=== PATIENT | female | born 1950 | race Caucasian/White ===

== ENCOUNTER → 2017-05-30 | Outpatient (CLI) | payer OTHER ==
[~2017-05-30] MED LIST: ADVAIR 250-501 EACH IH; ALBUTEROL INHAL17 GM IH; ALBUTEROL2.5 MG/31; ALBUTEROL2.5 MG/32 INH; ASPIRIN; ASPIRIN325 PO; BENTYL 20 MG TA20 M1 PO; CALCIUM; CELEXA40 MG PO; CLONAZEPAM; CLONAZEPAM 0.50.5 M1 PO; COMBIVENT INH; CYCLOBENZAPRINE10 MG PO; DEXILANT60 MG PO; ENABLEX15 MG PO; FLEXERIL PO; GABAPENTIN100 MG PO; LORTABELXR PO; MIDRIN CAPSULE1 CAP PO; NAPROXEN250 MG PO; NORCO 5-325 TA1 EACH PO; PREDNISONE50 MG PO; PRILOSEC 20 MG20 MG PO; PROAIR HFA8.5 GM INH; VERAPAMIL HCL120 M1 PO; VERAPAMIL HCL120 MG PO; VICODIN 5-5001 EACH PO; VITAMIN D1000 UNI1 PO; VITAMIN E400 UNIT PO; VITAMINC500 PO; ZPAK PO
== END ==
LOC: M.RAD 05-22 13:30
DX: Z12.31 Encounter for screening mammogram for malignant neoplasm of breast (principal); Z13.820 Encounter for screening for osteoporosis; Z78.0 Asymptomatic menopausal state

== ENCOUNTER 2017-09-11 13:28 | Emergency (ER) | payer OTHER ==
[~2017-09-11] VITALS: Ht 160 cm; Wt 51.7 kg
[~2017-09-11 13:28] MED LIST changes: -NAPROXEN250 MG PO
[2017-09-11 14:19] LABS: ABSOLUTE BASOPHILS 0.1 thou/uL (0.0-0.2); ABSOLUTE EOSINOPHILS 0.2 thou/uL (0.0-0.7); ABSOLUTE LYMPHOCYTES 2.4 thou/uL (0.8-5.3); ABSOLUTE MONOCYTES 0.4 thou/uL (0.0-1.2); ABSOLUTE NEUTROPHILS 5.5 thou/uL (1.6-8.1); BASOPHILS 1.3 %; EOSINOPHILS 2.8 %; HEMATOCRIT 40.3 % (37.0-47.0); HEMOGLOBIN 13.8 gm/dL (12.0-15.0); LYMPHOCYTES 27.6 %; MCH 32.4 pg (26.0-34.0); MCHC 34.3 g/dL (28.0-37.0); MCV 94.5 fL (80.0-100.0); MONOCYTES 4.6 %; MPV 7.3 fl. (7.2-11.1); NUCLEATED RBCS 0 /100WBC; PLATELET COUNT* 270 thou/uL (150-400); POLYS 63.7 %; RBC 4.27 mil/uL (4.20-5.00); RDW-CV 13.5 % (10.5-14.5); WBC 8.6 thou/uL (4.0-11.0)
[2017-09-11 14:28] LABS: CALCIUM 8.7 mg/dL (8.5-10.1); CREATININE 1.1 mg/dL (0.6-1.3); POTASSIUM 4.4 mmol/L (3.5-5.1)
[2017-09-11 14:33] LABS: ALBUMIN 3.4 g/dL (3.4-5.0); TOTAL BILIRUBIN 0.4 mg/dL (<0.1-1.0); TOTAL PROTEIN 6.8 g/dL (6.4-8.2)
--- NOTE | 2017-09-11 16:03 | EKG ---
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1950 Requested By: Alycia Garcia Order Number: [id number] [id number] MD: Mark Hernandez Measurements Intervals [place] Rate: 67 P: 81 CA: 188 QRS: 40 QRSD: 84 T: 59 QT: 421 QTc: 445 Interpretive Statements Sinus rhythm Possible left atrial enlargement Anteroseptal infarct, age indeterminate Compared to ECG 03/27/2016 13:51:08 Myocardial infarct finding now present Electronically Signed On 09-11-2017 16:03:22 CDT by Mark Hernandez [email or web address] <ELECTRONICALLY SIGNED> By: Mark Hernandez MD, [facility] 09/11/17 1603 D: 06/5 1355 Mark Hernandez MD, FACC /EPI
[2017-09-11] MEDS ORDERED: NAPROXEN250 MG PO (16:25)
[2017-09-11 16:40] VITALS: BP 149/71
== END 2017-09-11 16:41 | disposition home or self-care (01) ==
LOC: M.ERS 13:28
PROVIDERS: Nurse Practitioner Family
DX: S32.10XA Unspecified fracture of sacrum, initial encounter for closed fracture (principal); M54.16 Radiculopathy, lumbar region; I10 Essential (primary) hypertension; F17.210 Nicotine dependence, cigarettes, uncomplicated; Z86.73 Personal history of transient ischemic attack (TIA), and cerebral infarction without residual deficits; X58.XXXA Exposure to other specified factors, initial encounter; Y93.89 Activity, other specified; Y92.89 Other specified places as the place of occurrence of the external cause; Y99.8 Other external cause status

== ENCOUNTER → 2017-12-21 | Outpatient (CLI) | payer OTHER ==
[~2017-12-21] MED LIST changes: +NAPROXEN250 MG PO
== END ==
LOC: M.RAD 10:40
DX: N63.20 Unspecified lump in the left breast, unspecified quadrant (principal); R92.2 Inconclusive mammogram; I10 Essential (primary) hypertension

== ENCOUNTER → 2018-02-28 | Outpatient (CLI) | payer OTHER | LOC: M.ULTRA 02-20 13:00 | DX: I73.9 Peripheral vascular disease, unspecified (principal) ==

== ENCOUNTER → 2018-12-07 | Outpatient (CLI) | payer OTHER | LOC: M.MRI 07:48 | DX: I67.82 Cerebral ischemia (principal); R29.6 Repeated falls ==

== ENCOUNTER 2019-02-24 16:16 | Inpatient (IN) | payer OTHER ==
[~2019-02-24] VITALS: Ht 162.6 cm; Wt 60.7 kg
[2019-02-24 16:26] VITALS: BP 84/38
[2019-02-24 17:22] LABS: CALCIUM 9.9 mg/dL (8.5-10.1)
[2019-02-24 17:31] LABS: ALBUMIN 4.1 g/dL (3.4-5.0); CK-MB MASS 1.2 ng/mL (<0.5-3.6); TOTAL BILIRUBIN 0.4 mg/dL (<0.1-1.0); TOTAL PROTEIN 7.9 g/dL (6.4-8.2)
[2019-02-24 18:34] LABS: HEMATOCRIT 38.9 % (37.0-47.0); HEMOGLOBIN 13.1 gm/dL (12.0-15.0); MCH 31.6 pg (26.0-34.0); MCHC 33.8 g/dL (28.0-37.0); MCV 93.6 fL (80.0-100.0); NUCLEATED RBCS 0 /100WBC; PLATELET COUNT* 383 thou/uL (150-400); RBC 4.15 mil/uL (4.20-5.00); RDW-CV 14.1 % (10.5-14.5); WBC 12.8 thou/uL (4.0-11.0)
[2019-02-24 18:48] LABS: APTT 25.8 Seconds (25.0-31.3); INR 0.9; PROTIME 9.4 Seconds (9.20-11.50)
[2019-02-24 19:03] LABS: ABSOLUTE LYMPHOCYTES 0.6 thou/uL (0.8-5.3); ABSOLUTE MONOCYTES 0.5 thou/uL (0.0-1.2); ABSOLUTE NEUTROPHILS 11.6 thou/uL (1.6-8.1); ATYPICAL LYMPHS 1 %; PLATELET ESTIMATE ADEQUATE
[2019-02-24 19:45] VITALS: BP 135/59
[2019-02-25] VITALS: BP 107/32
[2019-02-25 04:00] VITALS: BP 91/56
[2019-02-25 08:00] VITALS: BP 87/44
--- NOTE | 2019-02-25 10:56 | EKG ---
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1950 Requested By: Obinna Armas Order Number: [id number] MD: Giovani Hernandez Measurements Intervals [place] Rate: 64 P: 79 AR: 196 QRS: 53 QRSD: 81 T: 77 QT: 421 QTc: 435 Interpretive Statements Sinus rhythm nonspecific t wave abnormalities Baseline wander in lead(s) V6 Compared to ECG 09/11/2017 13:55:55 ST (T wave) deviation now present Myocardial infarct no longer present Electronically Signed On 02-25-2019 10:56:32 CO CHAIRMAN by Giovani Hernandez [email or web address] <ELECTRONICALLY SIGNED> By: Giovani Hernandez MD, FAC 02/25/19 1056 1630 1630 Giovani Hernandez MD, [facility] /EPI
[2019-02-25 12:59] LABS: CREATININE 1.5 mg/dL (0.6-1.3)
[2019-02-25 13:43] LABS: URINE BILIRUBIN NEGATIVE (Negative); URINE BLOOD NEGATIVE (Negative); URINE CLARITY CLEAR; URINE COLOR YELLOW; URINE GLUCOSE-RANDOM NEGATIVE (Negative); URINE KETONES NEGATIVE (Negative); URINE LEUKOCYTES-REFLEX 1+ (Negative); URINE PROTEIN NEGATIVE (Negative); URINE UROBILINOGEN 0.2 E.U./dl (0.2-1.0)
[2019-02-25 13:44] LABS: URINE NITRITE-REFLEX POSITIVE (Negative)
[2019-02-25 14:13] LABS: BACTERIA-REFLEX >30 Many /HPF (None Seen); CASTS None Seen /LPF (None Seen); CRYSTALS None Seen /LPF (None Seen); MUCUS None Seen strn/LPF (None Seen); SQUAMOUS 4-10 Moderate /LPF (0-3); URINE RBC 0-2 Rare /HPF (0-2); URINE WBC-REFLEX 6-15 Few /HPF (0-5)
[2019-02-25 14:47] VITALS: BP 115/58
[2019-02-25] MEDS ORDERED: CYTOMEL50 MCG PO (17:00)
[2019-02-25] MEDS ORDERED: WELLBUTRIN SR150 MG PO (17:02)
[2019-02-25 17:36] VITALS: BP 128/66
[2019-02-25 19:02] LABS: CHOLESTEROL 162 mg/dL (<200); HDL CHOLESTEROL 44 mg/dL (>40); LDL CHOLESTEROL 87 mg/dL (<100); SERUM ASSESSMENT Clear; TC:HDL 3.7 Ratio (Not establshd); TRIGLYCERIDE 155 mg/dL (<150); VLDL 31 mg/dL (<40)
[2019-02-25] MEDS ORDERED: DULOXETINE HCL30 MG PO (19:12)
[2019-02-25] MEDS ORDERED: ABILIFY 2 MG2 M1 PO (19:13)
[2019-02-25] MEDS ORDERED: LISINOPRIL2.5 MG PO (19:15)
[2019-02-25] MEDS ORDERED: VITAMIN B-121000 MCG PO (19:16)
[2019-02-25] MEDS ORDERED: MELATONIN10 M3 PO (19:17)
[2019-02-25] MEDS ORDERED: CALCIUM + D SO1 EACH PO (19:18)
[2019-02-25 20:00] VITALS: BP 138/43
[2019-02-26] VITALS: BP 113/46
[2019-02-26 04:00] VITALS: BP 143/59
[2019-02-26 04:56] LABS: CALCIUM 8.1 mg/dL (8.5-10.1); CREATININE 1.3 mg/dL (0.6-1.3); POTASSIUM 4.3 mmol/L (3.5-5.1)
[2019-02-26 08:00] VITALS: BP 129/70
[2019-02-26 13:21] LABS: ABSOLUTE EOSINOPHILS 0.2 thou/uL (0.0-0.7); ABSOLUTE LYMPHOCYTES 1.7 thou/uL (0.8-5.3); ABSOLUTE MONOCYTES 0.3 thou/uL (0.0-1.2); ABSOLUTE NEUTROPHILS 1.8 thou/uL (1.6-8.1); BASOPHILS 1.1 %; EOSINOPHILS 5.1 %; HEMATOCRIT 26.2 % (37.0-47.0); LYMPHOCYTES 41.8 %; MCH 31.1 pg (26.0-34.0); MCHC 33.5 g/dL (28.0-37.0); MCV 92.9 fL (80.0-100.0); MONOCYTES 7.2 %; MPV 7.4 fl. (7.2-11.1); NUCLEATED RBCS 0 /100WBC; POLYS 44.8 %; RBC 2.82 mil/uL (4.20-5.00); RDW-CV 13.7 % (10.5-14.5); WBC 4.1 thou/uL (4.0-11.0)
[2019-02-26 13:24] LABS: HEMOGLOBIN 8.8 gm/dL (12.0-15.0); PLATELET COUNT* 268 thou/uL (150-400)
[2019-02-26] MEDS ORDERED: AUGMENTIN 875-1 EACH PO (13:40)
--- NOTE | 2019-02-26 13:47 | 2DMMODE ---
[place] [address] 2 D/M-MODE ECHOCARDIOGRAM Name: JOANA FELDER Room: [address] IN [facility]#: [id number] Admission: 02/24/19 Attend Phys: Huey Collazo, Discharge: Date of : 50 Date of Service: 02/26/19 1347 Report #: [id number] THIS REPORT FOR: //name// APPROVED REPORT Study performed: 02/26/2019 10:43:23 EXAM: Comprehensive 2D, Doppler, and color-flow Echocardiogram Patient Location: In-Patient Room #: [facility] Status: routine BSA: 1.62 HR: 72 bpm BP: 129/70 mmHg Rhythm: NSR Other Information Study Quality: Good Indications Syncope 2D Dimensions IVSd: 9.02 (7-11mm) LVOT Diam: 18.39 (18-24mm) LVDd: 38.45 mm PWd: 9.01 (7-11mm) Ascending Ao: 28.64 (22-36mm) LVDs: 21.16 (25-40mm) Aortic Root: 31.08 mm Volumes Left Atrial Volume (Systole) LA ESV Index: 18.60 mL/m2 Aortic Valve AoV Peak Aryan.: 1.46 m/s AO Peak Gr.: 8.53 mmHg LVOT Max P.89 mmHg AO Mean Gr.: 4.49 mmHg LVOT Mean P.51 mmHg LVOT Max V: 1.11 m/s AO V2 VTI: 28.05 cm LVOT Mean V: 0.74 m/s MARGARITA (VTI): 2.40 cm2 LVOT V1 VTI: 25.32 cm AI [place]: 3.93 m/s2 AI PHT: 353.31 ms Mitral Valve E/A Ratio: 1.13 [place] [address] 2 D/M-MODE ECHOCARDIOGRAM Name: JOANA FELDER Room: [address] IN .R.#: [id number] Admission: 02/24/19 Attend Phys: Huey Collazo, Discharge: Date of : 50 Date of Service: 02/26/19 1347 Report #: [id number] MV Decel. Time: 188.55 ms MV E Max Aryan.: 0.85 m/s MV PHT: 54.68 ms MVA (PHT): 4.02 cm2 TDI E/Lateral E': 8.50 E/Medial E': 9.44 Medial E' Aryan.: 0.09 m/s Lateral E' Aryan.: 0.10 m/s Pulmonary Valve PV Peak Aryan.: 1.02 m/s PV Peak Gr.: 4.17 mmHg Left Ventricle The left ventricle is normal size. There is normal LV segmental wall motion. There is normal left ventricular wall thickness. Left ventricular systolic function is normal. LVEF is 65-70%. Transmitral Doppler flow pattern suggests impaired LV relaxation. Right Ventricle The right ventricle is normal size. The right ventricular systolic function is normal. Atria The left atrium size is normal. The right atrium size is normal. Aortic Valve Mild aortic valve sclerosis. Moderate aortic regurgitation. There is no aortic valvular stenosis. Mitral Valve The mitral valve is normal in structure. There is no mitral valve regurgitation noted. No evidence of mitral valve stenosis. Tricuspid Valve The tricuspid valve is normal in structure. Trace tricuspid regurgitation. Unable to assess PA pressure. Pulmonic Valve The pulmonary valve is normal in structure. There is no pulmonic valvular regurgitation. Great Vessels The aortic root is normal in size. IVC is normal in size and collapses >50% [place] [address] 2 D/M-MODE ECHOCARDIOGRAM Name: JOANA FELDER Room: [address] IN [facility]#: [id number] Admission: 02/24/19 Attend Phys: Huey Collazo, Discharge: Date of : 50 Date of Service: 02/26/19 1347 Report #: [id number] Pericardium There is no pericardial effusion. <Conclusion> The left ventricle is normal size. There is normal left ventricular wall thickness. Left ventricular systolic function is normal. LVEF is 65-70%. Transmitral Doppler flow pattern suggests impaired LV relaxation. Mild aortic valve sclerosis. Moderate aortic regurgitation. There is no aortic valvular stenosis. Trace tricuspid regurgitation. IVC is normal in size and collapses >50% with inspiration. <ELECTRONICALLY SIGNED> By: Mark Hernandez MD, FACC 02/26/19 1347 134 134 Mark Hernandez MD, FACC /INF
[2019-02-26 15:13] VITALS: BP 140/91
[2019-02-26 15:24] VITALS: BP 140/91
== END 2019-02-26 15:46 | disposition home or self-care (01) | DRG 177 ==
LOC: M.ERS 16:16 → M.2W 18:55 → M.TBA-ER 18:55 → M.2W 20:19
PROVIDERS: Family Medicine; Internal Medicine; Internal Medicine Nephrology; ADMIT Internal Medicine
DX: J69.0 Pneumonitis due to inhalation of food and vomit (principal); N17.0 Acute kidney failure with tubular necrosis; E87.1 Hypo-osmolality and hyponatremia; N39.0 Urinary tract infection, site not specified; I10 Essential (primary) hypertension; F17.210 Nicotine dependence, cigarettes, uncomplicated; R58 Hemorrhage, not elsewhere classified; H53.8 Other visual disturbances; M25.529 Pain in unspecified elbow; M25.519 Pain in unspecified shoulder; R68.3 Clubbing of fingers; F32.9 Major depressive disorder, single episode, unspecified; R55 Syncope and collapse; M94.0 Chondrocostal junction syndrome [Tietze]; R07.81 Pleurodynia; Z80.42 Family history of malignant neoplasm of prostate; Z86.73 Personal history of transient ischemic attack (TIA), and cerebral infarction without residual deficits; Z93.3 Colostomy status; Z93.2 Ileostomy status; Z79.82 Long term (current) use of aspirin; Z79.899 Other long term (current) drug therapy; Z80.9 Family history of malignant neoplasm, unspecified

== ENCOUNTER 2019-03-07 14:27 | Inpatient (IN) | payer OTHER ==
[~2019-03-07] VITALS: Ht 162.6 cm; Wt 61.2 kg
[~2019-03-07 14:27] MED LIST changes: +ABILIFY 2 MG2 M1 PO; +AUGMENTIN 875-1 EACH PO; +CALCIUM + D SO1 EACH PO; +CYTOMEL50 MCG PO; +DULOXETINE HCL30 MG PO; +LISINOPRIL2.5 MG PO; +MELATONIN10 M3 PO; +VITAMIN B-121000 MCG PO; +WELLBUTRIN SR150 MG PO
[2019-03-07 14:30] VITALS: BP 118/33
[2019-03-07 15:23] LABS: HEMATOCRIT 47.1 % (37.0-47.0); HEMOGLOBIN 15.6 gm/dL (12.0-15.0); MCH 31.4 pg (26.0-34.0); MCHC 33.2 g/dL (28.0-37.0); MCV 94.4 fL (80.0-100.0); MPV 7.2 fl. (7.2-11.1); NUCLEATED RBCS 0 /100WBC; PLATELET COUNT* 417 thou/uL (150-400); RBC 4.98 mil/uL (4.20-5.00); RDW-CV 14.4 % (10.5-14.5); WBC 18.9 thou/uL (4.0-11.0)
[2019-03-07 16:03] LABS: ABSOLUTE LYMPHOCYTES 0.8 thou/uL (0.8-5.3); ABSOLUTE MONOCYTES 0.8 thou/uL (0.0-1.2); ABSOLUTE NEUTROPHILS 17.4 thou/uL (1.6-8.1); PLATELET ESTIMATE ADEQUATE
[2019-03-07 16:24] LABS: CALCIUM 10.1 mg/dL (8.5-10.1); CREATININE 6.2 mg/dL (0.6-1.3)
[2019-03-07 16:25] LABS: APTT 26.9 Seconds (25.0-31.3)
[2019-03-07 16:26] LABS: POTASSIUM 6.9 mmol/L (3.5-5.1)
[2019-03-07 16:34] LABS: ALBUMIN 4.2 g/dL (3.4-5.0); TOTAL BILIRUBIN 0.5 mg/dL (<0.1-1.0); TOTAL PROTEIN 8.9 g/dL (6.4-8.2)
[2019-03-07 16:51] LABS: URINE BILIRUBIN NEGATIVE (Negative); URINE BLOOD NEGATIVE (Negative); URINE CLARITY CLEAR; URINE COLOR YELLOW; URINE GLUCOSE-RANDOM NEGATIVE (Negative); URINE KETONES TRACE (Negative); URINE LEUKOCYTES-REFLEX NEGATIVE (Negative); URINE NITRITE-REFLEX NEGATIVE (Negative); URINE PROTEIN NEGATIVE (Negative); URINE SPECIFIC GRAVITY >= 1.030 (1.005-1.030); URINE UROBILINOGEN 0.2 E.U./dl (0.2-1.0)
[2019-03-07 17:06] LABS: BE -10.6 mmol/L (-2 to +3); PCO2 32.6 mmHg (35.0-45.0); PO2 82.2 mmHg (75.0-100.0)
[2019-03-07 17:08] LABS: pH 7.278 (7.340-7.450)
--- NOTE | 2019-03-07 17:11 | NUR ---
MOVED TO ROOM 2 IN ED FOR CENTRAL LINE PROCEDURE. DR. POLK AT BEDSIDE PREPARING FOR PROCEDURE. THIS NURSE REMAINS AT BEDSIDE.
--- NOTE | 2019-03-07 17:14 | EKG ---
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1950 Requested By: Kalen Oconnell Order Number: [id number] MD: Jordan Bates Measurements Intervals [place] Rate: 95 P: 67 TX: 176 QRS: 33 QRSD: 82 T: 83 QT: 346 QTc: 435 Interpretive Statements Sinus rhythm Biatrial enlargement Low voltage, precordial leads Consider old anterior infarct Compared to ECG 02/24/2019 16:30:46 Atrial abnormality now present Low QRS voltage now present Electronically Signed On 03-07-2019 17:13:55 ENVIRONMENTAL MANAGEMENT SPECIALIST by Jordan Bates [email or web address] <ELECTRONICALLY SIGNED> By: Jordan Bates MD, [facility] 03/07/19 1713 1433 143 Jordan Bates MD, FACC /EPI
[2019-03-07 17:42] LABS: URINE POTASSIUM-RANDOM 41.7 mmol/L
--- NOTE | 2019-03-07 17:42 | NUR ---
UNSUCCESSFUL CENTRAL LINE PLACEMENT IN RIGHT SIDE OF NECK. DR. POLK TO TRY TO ATTEMPT CENTRAL LINE PLACEMENT IN LEFT FEMORAL. BP 75/43. IV FLUIDS X2 INFUSING WIDE OPEN. PT AWAKE, BUT LETHARGIC, TALKING TO STAFF AND RESPONDING WHEN ASKED QUESTIONS.
[2019-03-07 17:47] LABS: INFLUENZA A ANTIGEN Negative (Negative); INFLUENZA B ANTIGEN Negative (Negative)
--- NOTE | 2019-03-07 17:47 | NUR ---
DR. POLK AT BEDSIDE PREPARING FOR SECOND CENTRAL LINE ATTEMPT IN LEFT FEMORAL. THIS NURSE AND RT ALDO AT BEDSIDE.
--- NOTE | 2019-03-07 17:58 | NUR ---
SUCCESSFUL LINE PLACED IN LEFT FEMORAL. PER DR. POLK, CENTRAL LINE IS OKAY TO USE. IV DRIPS/FLUIDS INITIATED.
--- NOTE | 2019-03-07 18:43 | NUR ---
THIS NURSE GAVE REPORT TO BASILIO MONTILLA WHO IS TO ASSUME PT CARE ICU NURSE.
[2019-03-07 18:45] VITALS: BP 105/47
[2019-03-07 19:06] VITALS: BP 113/46
[2019-03-07 20:29] LABS: CREATININE 5.8 mg/dL (0.6-1.3); POTASSIUM 4.1 mmol/L (3.5-5.1)
[2019-03-07 21:01] VITALS: BP 76/34
--- NOTE | 2019-03-07 21:15 | NUR ---
ADMITTED TO ICU BED 2 AT 1900, SEE ASSESSMENTS. INSULIN AND D10/HCO3 GTTS INFUSING ORDERED. PT A/OX4, DENIES PAIN AND SOA. BG CHECKS HOURLY, CURRENTLY 97. BMP Q2HR, K NOW 4.1, DOWN FROM 6.9. CALL PLACED TO DR SMITH, ORDERS RECEIVED TO DC INSULIN AND D10/HCO3 GTTS; DC'D AT THIS TIME. CALL LIGHT WITHIN REACH.
[2019-03-07 21:34] LABS: CALCIUM 8.7 mg/dL (8.5-10.1); CREATININE 5.6 mg/dL (0.6-1.3)
[2019-03-07 21:47] LABS: BE -9.9 mmol/L (-2 to +3); PCO2 28.2 mmHg (35.0-45.0); pH 7.331 (7.340-7.450)
[2019-03-07 22:00] VITALS: BP 73/42
[2019-03-07 23:00] VITALS: BP 81/35
[2019-03-07 23:03] LABS: CALCIUM 8.9 mg/dL (8.5-10.1); CREATININE 5.3 mg/dL (0.6-1.3); POTASSIUM 4.4 mmol/L (3.5-5.1)
[2019-03-08] VITALS (38 sets, daily range): BP systolic 70–113; BP diastolic 30–56
--- NOTE | 2019-03-08 05:00 | NUR ---
PTS BP LOW THROUGH THE NIGHT, MAP 45-55, HOWEVER PT EASILY AROUSABLE AND ASYMPTOMATIC. DR SANDOVAL PAGED X2. RETURN CALL RECEIVED AT 0430, ORDER RECEIVED TO GIVE 500ML NS BOLUS, OTHERWISE NO NEED FOR INTERVENTION LONG PT IS AROUSABLE AND ASYMPTOMATIC. CALL LIGHT WITHIN REACH.
[2019-03-08 05:11] LABS: HEMATOCRIT 28.1 % (37.0-47.0); MCH 31.8 pg (26.0-34.0); MCHC 34.1 g/dL (28.0-37.0); MCV 93.1 fL (80.0-100.0); RBC 3.02 mil/uL (4.20-5.00); RDW-CV 13.7 % (10.5-14.5); WBC 9.4 thou/uL (4.0-11.0)
[2019-03-08 05:16] LABS: CREATININE 5.3 mg/dL (0.6-1.3); MAGNESIUM 1.5 mg/dL (1.8-2.4); POTASSIUM 4.5 mmol/L (3.5-5.1)
[2019-03-08 05:18] LABS: HEMOGLOBIN 9.6 gm/dL (12.0-15.0)
[2019-03-08 08:10] LABS: ALBUMIN 2.6 g/dL (3.4-5.0); CREATININE 5.3 mg/dL (0.6-1.3); POTASSIUM 4.5 mmol/L (3.5-5.1); TOTAL BILIRUBIN 0.4 mg/dL (<0.1-1.0); TOTAL PROTEIN 5.6 g/dL (6.4-8.2)
[2019-03-08 08:32] LABS: % SATURATION 14 % (20-39); IRON 33 ug/dL (50-175)
[2019-03-08 12:41] LABS: SMEAR FOR EOSINOPHILS No Eosinophils Seen
[2019-03-08 14:36] LABS: CALCIUM 7.4 mg/dL (8.5-10.1); CREATININE 3.6 mg/dL (0.6-1.3); POTASSIUM 3.8 mmol/L (3.5-5.1)
--- NOTE | 2019-03-08 15:06 | NUR ---
INT ROUNDS: PT ADMITTED WITH ARF AND HYPERKALEMIA, STATES SHE HAS HAD FALLS ALSO. PT KNOWN TO [facility] 02/25. LIVES WITH SON BUT HE WORKS AND IS GONE SOME. PT IS NORMALLY INDEPENDENT, USES WALKER OR CANE. HAS [facility] NURSE MONTHLY BUT HASN'T HAD HH OR BEEN TO SNF. DISCUSSED BOTH OPTIONS. PT OPEN TO NEEDS. WILL FOLLOW. SON/MARIYA IS DPOA
[2019-03-08 16:16] LABS: HEMATOCRIT 19.6 % (37.0-47.0); HEMOGLOBIN 6.7 gm/dL (12.0-15.0)
[2019-03-08 17:41] LABS: HEMATOCRIT 22.5 % (37.0-47.0); HEMOGLOBIN 7.5 gm/dL (12.0-15.0)
--- NOTE | 2019-03-08 18:54 | NUR ---
1L NS BOLUS PER CARD MOUNTER IN THE MORNING. BP SOFT THE WHOLE DAY BUT PT ASYMPTOMATIC, MAP >60. 1/2 NS WITH HCO3 CONTD AT 150 MLS/HR. TOLERATED HER DIET. EMPTIED ILEOSTOMY x4, LOOSE BROWN STOOL. STOOL SENT FOR CULTURE. PT IS FORGETFUL AT TIMES. CT ABD/PELVIS DONE. PT UP WITH STB ASSIST.
--- NOTE | 2019-03-08 21:00 | NUR ---
PT C/O HEADACHE, PRN TYLENOL GIVEN AT 1800 WITH MINIMAL RELIEF. PRN BENADRYL GIVEN ADJUNCT FOR MIGRAINE RELIEF. PT ALSO C/O TINGLING PAIN IN FINGERTIPS. CALL PLACED TO DR SNOW, ORDERS RECEIVED FOR PRN IMITREX AND TO RESTART PTS HOME DOSE GABAPENTIN. PT REPORTED COMPLETE HEADACHE RELIEF UPON REASSESSMENT OF PAIN AT 2049 WHEN IMITREX WAS AVAILABLE.
[2019-03-09] VITALS (7 sets, daily range): BP systolic 91–121; BP diastolic 34–58
[2019-03-09 05:36] LABS: MCH 31.9 pg (26.0-34.0); MCHC 34.2 g/dL (28.0-37.0); MCV 93.3 fL (80.0-100.0); RBC 1.94 mil/uL (4.20-5.00); WBC 5.5 thou/uL (4.0-11.0)
[2019-03-09 05:41] LABS: CALCIUM 7.2 mg/dL (8.5-10.1); MAGNESIUM 1.6 mg/dL (1.8-2.4); POTASSIUM 4.2 mmol/L (3.5-5.1)
[2019-03-09 05:56] LABS: HEMATOCRIT 18.1 % (37.0-47.0); HEMOGLOBIN 6.2 gm/dL (12.0-15.0)
--- NOTE | 2019-03-09 15:14 | NUR ---
PT FORGETFUL AND CONFUSED, REORIENTATION PROVIDED. PT OUT OF BED WITH STB ASSIST, CLEANED HERSELF. LT FEMORAL LINE DC'd. NEW IV INSERTED AT RT FOREARM, 20G. PAULA'S CATH INSITU. ILEOSTOMY INTACT, DRAINING LOOSE BROWN STOOLS. I UNIT OF PRBC TRANSFUSED. 1/2 NS WITH HCO3 AT 100 MLS/HR. ATE 30-40% OF DIET. REPORT GIVEN TO OSCAR LOWERY.
[2019-03-09 15:37] LABS: HEMOGLOBIN 8.9 gm/dL (12.0-15.0)
--- NOTE | 2019-03-09 16:21 | NUR ---
RECEIVED PT FROM ICU AT 1500. PT GET SITUATED TO ROOM, TELE IN PLACED. TRACING SINUS RHYTHM. AOX4, UP WITH ASSIST. PT HAS ILEOSTOMY BAG, PAULA CATH DRAINING WELL. I AGREE WITH ROLDAN RICHMONDENTRY REP. HOURLY ROUNDING, WILL CONTINUE TO MONITOR.
[2019-03-10] VITALS: BP 123/59
[2019-03-10 04:00] VITALS: BP 125/56
[2019-03-10 04:24] LABS: CALCIUM 7.6 mg/dL (8.5-10.1); CREATININE 1.3 mg/dL (0.6-1.3); MAGNESIUM 1.4 mg/dL (1.8-2.4); POTASSIUM 4.2 mmol/L (3.5-5.1)
[2019-03-10 05:37] LABS: CORTISOL 30 MIN 20.5 ug/dL (Not Estab.); CORTISOL BASELINE 15.3 ug/dL (())
--- NOTE | 2019-03-10 06:31 | NUR ---
ASSUMED PT CARE AT APPROX 1930. PT IS AWAKE AND CONFUSED-REORIENTATION PROVIDED. VSS ON ROOM AIR. CLINICAL NURSE EDUCATOR IN PLACE TRACING SR/ST w/ OCCASSIONAL PACs. PT DENIES PAIN OF THIS TIME. ILEOSTOMY INTACT-DRAINING LOOSE BROWN STOOLS. PT REMAINED CONFUSED AND ANXIOUS MOST OF THE NIGHT, PRN MEDS FOR ANXIETY GIVEN PER EMAR. PT'S DAUGHTER BULMARO REMAINED AT BEDSIDE FOR A LITTLE WHILE, PT SEEMED TO CALM DOWN AND WAS ABLE TO SLEEP SOME. HIGH FALL PRECAUTIONS IN PLACE. PT CLOSELY MONITORED.
[2019-03-10 08:00] VITALS: BP 150/70
--- NOTE | 2019-03-10 13:10 | NUR ---
ASSUMED PT CARE AT 0800, PT AO TO SELF, TEARFUL, PT STATE SHE IS SAD BECAUSE SHE CANT REMEMBER SOME THINGS. AROUND 11OO, PT START GETTING VERY CONFUSE, GETTING OUT OF THE BED WITHOUT USING CALL LIGHT, GETTING OUT OF THE ROOM AND WANTED TO LEAVE. PT REORIENTED MULTIPLE TIMES. PT GET MORE AGITATED. FAMILY CAME TO HELP WITH TO REORIENT PT, BUT STARTED TO GET AGGRESIVE TOWARDS HER DAUGHTER. NOTIFIED WITH SITUATION. PT ON PRN SITTER. PT MEDSURG, O2 SAT 90'S RA. PAULA CATH DISCONTINUE. PT HAS GI CONSULT. PT HAS ILEOSTOMY. AM ASSESSMENT CHARTED, HOURLY ROUNDING, FALL RISK. WILL CONTINUE TO MONITOR.
[2019-03-10 16:00] VITALS: BP 145/65
[2019-03-10 20:00] VITALS: BP 130/61
[2019-03-10 23:25] VITALS: BP 141/66
--- NOTE | 2019-03-11 06:22 | NUR ---
ASSUMED PATIENT CARE AT 1900. ASSESSMENT COMPLETED CHARTED. PATIENT IS MED-SURG. HOURLY ROUNDING IN PLACE FOR PATIENT SAFETY. CLWR.
[2019-03-11 16:37] VITALS: BP 142/86
--- NOTE | 2019-03-11 17:05 | NUR ---
PATIENT RESTING IN BED. UP AD IOANA IN ROOM AND WITH STANDBY ASSIST IN HALLWAYS. TELEPSYCH COMPLETED. HOURLY ROUNDING COMPLETED FOR PATINET SAFETY
--- NOTE | 2019-03-11 18:14 | CON ---
[address] [address] CONSULTATION Name: JOANA FELDER Room: [address] IN M.R.#: [id number] Admission: 03/07/19 Attend Phys: Khris Wise MD Discharge: Date of : 50 Report #: [id number] THIS REPORT FOR: //name// CC: Ishmael Wise DATE OF SERVICE: 03/10/2019 HISTORY OF PRESENT ILLNESS: This is a pleasant 69-year-old female. The patient has a known past medical history of CKD, hypertension and a total colectomy. The patient was initially brought into the hospital with weakness and lack of appetite. The patient was diagnosed with acute tubular necrosis and acute kidney injury along with metabolic encephalopathy. The GI service has now been consulted for evaluation of possible GI bleed. The patient denies any significant symptoms such as abdominal pain, nausea, vomiting, diarrhea, hematemesis, hematochezia. The patient reports she was diagnosed with colonic ischemia about 15 years back and had to undergo total colectomy with end ileostomy placement. The patient reports no issues with emptying her ostomy bag and she denies any excessive ostomy output at this time. PAST MEDICAL HISTORY: Hypertension, [place]. PAST SURGICAL HISTORY: The patient had hysterectomy 30 years back. Colonic ischemia and total colectomy 15 years back. Right knee replacement. SOCIAL HISTORY: The patient quit smoking 1 month back. Prior to that, has a [id number] smoking history. Denies alcohol or recreational drug use. FAMILY HISTORY: No family history of colon cancer or [place]-related neoplasia. REVIEW OF SYSTEMS: Negative except for what was mentioned in the HPI. PHYSICAL EXAMINATION: VITAL SIGNS: Temperature 36.4, pulse rate 97, respirations 18, blood pressure 150/70, pulse ox 95% on room air. GENERAL: The patient is alert, awake, oriented x 3. HEENT: Pupils are equal, round, reactive to light and accommodation. Mucous membranes are moist. There is no congestion. LUNGS: Clear to auscultation bilaterally. CARDIOVASCULAR: Rate and rhythm regular. S1, S2 present. ABDOMEN: Soft. There is no distention, guarding or rigidity. EXTREMITIES: Warm, well perfused. The ostomy bag appears to be filled with a small amount of yellow-colored stool. No peristomal tenderness or bleeding noted. LABORATORY DATA: Hemoglobin yesterday was 6.2, hematocrit 18.1; today it is 8.9 [place] [address] CONSULTATION Name: JOANA FELDER Room: [address]#: [id number] Admission: 03/07/19 Attend Phys: Khris Wise MD Discharge: Date of : 50 Report #: [id number] and 26.0. Sodium 139, potassium 4.2, chloride 105, bicarbonate 24, BUN 20, creatinine 1.3. INR 1.0. IMAGING: Abdomen and pelvis CT: Extensive mesenteric inflammation. This has developed since the previous study. Findings are worrisome for peritonitis. No abscess identified. Correlation with the patient's clinical setting is recommended. No evidence of bowel obstruction. Small pleural effusion. ASSESSMENT AND PLAN: A pleasant 69-year-old female presenting with acute kidney injury, acute tubular necrosis and metabolic encephalopathy. The Gastrointestinal Service has been consulted for evaluation of possible gastrointestinal bleed. There is no overt evidence of gastrointestinal bleed at this time. I would monitor the patient's hemoglobin. I offered the patient EGD at this time, but she refused. I also offered outpatient followup and the patient also declines that at this time. The CT demonstrates evidence of peritonitis, but there is no objective evidence of peritonitis. The patient's abdomen is quite soft and nontender. The patient declined EGD and no further intervention is planned at this time. Thank you for this consultation. <ELECTRONICALLY SIGNED> By: Darren Crain MD 03/11/19 1814 1149 [id number] Crain MD /nt
[2019-03-11 19:50] VITALS: BP 149/75
[2019-03-12 04:00] VITALS: BP 141/73
[2019-03-12 05:12] LABS: HEMATOCRIT 28.7 % (37.0-47.0); HEMOGLOBIN 9.9 gm/dL (12.0-15.0); MCH 30.9 pg (26.0-34.0); MCHC 34.5 g/dL (28.0-37.0); MCV 89.5 fL (80.0-100.0); MPV 7.1 fl. (7.2-11.1); RBC 3.21 mil/uL (4.20-5.00); RDW-CV 16.7 % (10.5-14.5); WBC 6.3 thou/uL (4.0-11.0)
[2019-03-12 05:24] LABS: CALCIUM 8.2 mg/dL (8.5-10.1); CREATININE 1.1 mg/dL (0.6-1.3); MAGNESIUM 1.3 mg/dL (1.8-2.4); POTASSIUM 4.2 mmol/L (3.5-5.1)
--- NOTE | 2019-03-12 05:27 | NUR ---
PT CARE ASSUMED AT 1930. SAT MAINTAINED IN RA. ALERT AND ORIENTED X4. DENIES PAIN AND SOB. CALL LIGHT WITHIN REACH AND BED IN LOW POSITION. HOURLY ROUNDING DONE FOR PT SAFETY.
[2019-03-12] MEDS ORDERED: ZYPREXA5 MG PO (09:27)
[2019-03-12 10:05] VITALS: BP 141/73
--- NOTE | 2019-03-12 10:30 | NUR ---
ORDERS NOTED FOR DC HOME WITH HH, MET WITH PT, DISCUSSED OPTIONS, CHOSE [facility]. CALLED AND FAXED ORDERS TO [facility]. PT ANXIOUS TO LEAVE.
--- NOTE | 2019-03-12 10:38 | NUR ---
PT A&OX4 VSS. IV REMOVED FROM L HAND. NO BLEEDING OR SWELLING AT SITE. PT UP AD IOANA, GAIT STEADY. PT ANXIOUS TO DC THIS AM. PT CARES FOR ILEOSTOMY INDEPENDENTLY. PT HAS BEEN ADVISED TO MAKE F/U APPT WITH PCP WELL A PSYCHIATRIST FOR CONTINUED CARE. PT STATES UNDERSTANDING OF DC INSTRUCTIONS AND RX INFORMATION PROVIDED. CASE MANAGEMENT ASSISTED THIS PT HOME HEALTH. PT LEAVES UNIT IN WITH ALL PERSON ALL BELONGINGS. PT TRANSPORTED TO [facility] BY NURSING STAFF.
--- NOTE | 2019-03-24 07:43 | CON ---
[address] [address] CONSULTATION Name: JOANA FELDER Room: [address] IN M.R.#: [id number] Admission: 03/07/19 Attend Phys: Khris Wise MD Discharge: 03/12/19 Date of : 50 Report #: [id number] THIS REPORT FOR: //name// CC: Ishmael Wise REASON FOR CONSULTATION: This is a consultation obtained by Dr. Wise for acute kidney injury and critical hyperkalemia. HISTORY OF PRESENT ILLNESS: The patient is a 69-year-old female patient who was admitted by the ER yesterday. The admission complaint seems to be profound weakness, poor appetite, abdominal pain. The patient also had a fall and was unable to get up because of weakness, was found to be very confused and brought into the ER for further management. I reviewed the patient's past medical history. She does have a history of a recent diagnosis of cardiogenic syncope, according to the admission H and P. An echocardiogram report from recent shows a normal LV ejection fraction and no significant valvular abnormalities. The patient does have a longstanding history of bowel problems with multiple abdominal surgeries, history of colectomy and ileostomy formation. The patient recently was on antibiotics too for what appears to be aspiration pneumonitis. The patient is a very poor historian. She tells me she has not been feeling well for the past many days as she is just too weak and tired and is unable to give me any specific history. She does tell me she has been not eating well. She has liquid stools in her ostomy and that is always a chronic problem. She denies any fevers. She feels cold and she has chills. She denies any cough or phlegm. She was recently sent home on antibiotics. In the ER, she was found to have acute kidney injury with severe hyperkalemia and metabolic acidosis. She was given medical management for hyperkalemia with intravenous fluids, bicarbonate infusion, the hyperkalemia was corrected. Overnight, she has only made 150 mL of urine. She has significant loose stools in her ostomy. The patient is on room air at this time, appears very tearful and complains of pain in the abdomen. PAST MEDICAL HISTORY: History of hypertension; diabetes; anxiety disorder; history of hyponatremia in the past; history of colectomy with ileostomy with chronic loose stools; recent prescription of NSAID use, though I am not sure how much the patient was using; history of TIAs and memory loss. PERSONAL, SOCIAL AND FAMILY HISTORY: Smoking is reported. No family history of ESRD. REVIEW OF SYSTEMS: The patient appears very fatigued and [place] [address] CONSULTATION Name: JOANA FELDER Room: [address] M.R.#: [id number] Admission: 03/07/19 Attend Phys: Khris Wise MD Discharge: 03/12/19 Date of : 50 Report #: [id number] She reports abdominal pain, unable to provide any focal symptoms, but denies any fevers, but feels chills. Denies any cough. No chest pain. Has vaguely and diffusely tender abdomen. PHYSICAL EXAMINATION: VITAL SIGNS: On my examination, her blood pressure has been low all morning in the 70s-80s. Her pulse rate has been 82. She is on room air 95% saturation. HEENT: Mucous membranes are dry. She appears very forgetful and tearful. LUNGS: Diminished bilaterally. HEART: Regular S1, S2. ABDOMEN: Vaguely tender, but no significant peritoneal signs are seen. She has a midline incision. She has an ostomy with a significant volume of liquid stools. EXTREMITIES: Lower extremity exam shows no edema. SKIN: Dry, but warm. LABORATORY DATA: Reviewed. White count was 18.9 on admission, 9.4 this morning. Hemoglobin has dropped from 15.6, down to 9.6. Platelet count is normal 278. Blood gas on admission showed pH of 7.278, pCO2 of 32, pO2 of 82 and bicarb of 15%. This was on room air. This morning, the pH is 7.3, pCO2 of 28, pO2 of 88 and bicarb of 14.6. Metabolic panel on admission, her sodium was 126, potassium was 6.9, BUN 59, creatinine 6.2, bicarb of 17, anion gap of 17. AST, ALT are relatively okay. Alkaline phosphatase normal. Albumin 4.2. This morning, her sodium is improved to 136, potassium is down to 4.5, chloride 103, bicarbonate is 18, anion gap down to 15, BUN 54, creatinine 5.3, albumin was 2.6, magnesium 1.2, calcium 8.0. Her lactic acid yesterday was 1.9. DIAGNOSTIC DATA: Imaging studies of the abdomen, renal ultrasound shows small size kidneys bilaterally, but no evidence of any hydronephrosis. Chest x-ray showed no acute cardiopulmonary abnormalities. Abdominal x-ray shows nonspecific bowel gas pattern. CT of the head did not show any acute intracranial process. ASSESSMENT: 1. Oliguric acute kidney injury secondary to hemodynamic causes. The patient is hypoperfusing the kidneys secondary to shock, unclear evidence of septic shock or shock secondary to fluid losses from ileostomy. The patient was also on lisinopril at home and probably also taking naproxen, which she was sent out on as a prescription on her last visit. She recently was on antibiotics too, though the possibility of interstitial nephritis remains extremely low. 2. Critical hyperkalemia on admission secondary to acute kidney injury, profound metabolic acidosis and volume losses. The patient is also on YENNIFER inhibitors. 3. Anion gap metabolic acidosis. 4. Abdominal pain, cause unclear. 5. Chronic history of bowel problems with ileostomy [place] [address] CONSULTATION Name: JOANA FELDER Room: [address] IN [facility].#: [id number] Admission: 03/07/19 Attend Phys: Khris Wise MD Discharge: 03/12/19 Date of : 50 Report #: [id number] ileostomy. 6. Memory issues and anxiety issues. 7. Recent admission for possible aspiration pneumonia and recent course of antibiotics. PLAN: 1. Acute kidney injury. Her baseline creatinine is 1.3 as recent as 02/26. 2. She is volume depleted. Urine sodium is 5, which is consistent with the same. The patient has already received 3 liters of fluid, but she still appears to be volume deficient. I will give her 1 more liter of saline bolus and continue normal saline at 150 mL an hour after that. Repeat labs were drawn in around 6 hours. 3. Close monitoring of urine output. 4. Hypotension, not sure if this is sepsis or just volume losses. Workup for sepsis has been sent. She did have a high white count on admission. Chest x-ray is not showing any evidence of intrathoracic abnormalities, but volume resuscitation may uncover latent pneumonias, etc. Urinalysis suggested UTI. Please send the stools for cultures and ova and parasite and evaluation for the same. Her abdominal pain needs to be further investigated and she needs imaging of the abdomen. Discussed with the nurses to discuss the hospitalist service to decide what would be appropriate. 5. Anion gap metabolic acidosis has improved slightly. The patient may need some bicarbonate infusion also. We will follow up labs this afternoon to decide if we need to replace the saline over the bicarbonate drip. 6. Critical hyperkalemia or other reasons mentioned above, it is already improving. 7. Give the patient 50 grams of albumin once today too, that will help with the hypotension also. 8. Replace magnesium with 1 gram of magnesium sulfate and follow levels closely. 9. Please avoid all nephrotoxic medications, no IV contrast, no YENNIFER inhibitors, no ARBs, and no NSAIDs. Thank you for the consultation. From my perspective, the patient can be allowed to eat, provided her abdominal pain is addressed. The patient is critically sick. I spent one hour in the ICU, discussing with nursing staff, examining the patient, coordinating care. <ELECTRONICALLY SIGNED> By: Zack Harrell MD 03/24/19 [id number] Harrell MD /nt
== END 2019-03-12 10:30 | disposition home health service (06) | DRG 871 ==
LOC: M.ERS 14:27 → M.TBA-ER 18:09 → M.ICU 18:09 → M.2W 03-09 15:17
PROVIDERS: Emergency Medicine Emergency Medical Services; Internal Medicine; Internal Medicine Nephrology; ADMIT Internal Medicine
PROC: 06HY33Z Insertion of Infusion Device into Lower Vein, Percutaneous Approach (ICD-10-PCS; principal; 2019-03-07)
PROC: 30233N1 Transfusion of Nonautologous Red Blood Cells into Peripheral Vein, Percutaneous Approach (ICD-10-PCS; 2019-03-09)
DX: A41.9 Sepsis, unspecified organism (principal); N17.0 Acute kidney failure with tubular necrosis; G92 Toxic encephalopathy; K65.9 Peritonitis, unspecified; R65.21 Severe sepsis with septic shock; E87.1 Hypo-osmolality and hyponatremia; E27.40 Unspecified adrenocortical insufficiency; E44.0 Moderate protein-calorie malnutrition; D62 Acute posthemorrhagic anemia; K92.2 Gastrointestinal hemorrhage, unspecified; F23 Brief psychotic disorder; T50.915A Adverse effect of multiple unspecified drugs, medicaments and biological substances, initial encounter; F17.210 Nicotine dependence, cigarettes, uncomplicated; E87.5 Hyperkalemia; F32.9 Major depressive disorder, single episode, unspecified; F41.1 Generalized anxiety disorder; E11.22 Type 2 diabetes mellitus with diabetic chronic kidney disease; I12.9 Hypertensive chronic kidney disease with stage 1 through stage 4 chronic kidney disease, or unspecified chronic kidney disease; N18.9 Chronic kidney disease, unspecified; Z96.651 Presence of right artificial knee joint; I95.2 Hypotension due to drugs; N14.1 Nephropathy induced by other drugs, medicaments and biological substances; T50.995A Adverse effect of other drugs, medicaments and biological substances, initial encounter; I70.1 Atherosclerosis of renal artery; G31.84 Mild cognitive impairment of uncertain or unknown etiology; Z95.828 Presence of other vascular implants and grafts; Y92.89 Other specified places as the place of occurrence of the external cause; Z91.81 History of falling; Z90.710 Acquired absence of both cervix and uterus; Z86.73 Personal history of transient ischemic attack (TIA), and cerebral infarction without residual deficits; Z93.3 Colostomy status; Z93.2 Ileostomy status; Z79.82 Long term (current) use of aspirin; Z79.899 Other long term (current) drug therapy; Z91.040 Latex allergy status; Z90.49 Acquired absence of other specified parts of digestive tract; Z68.23 Body mass index [BMI] 23.0-23.9, adult